=== PATIENT | female | born 1965 | race Caucasian/White ===

== ENCOUNTER → 2016-11-16 | Outpatient (CLI) | payer OTHER ==
--- NOTE | 2016-11-16 15:51 | DIAGNOSTIC IMAGING REPORT ---
LYMPH SENTINEL NODE ID CLINICAL HISTORY: 51 years-old Female presenting with RIGHT BREAST CANCER. COMPARISON: None. PROCEDURE: Using standard sterile technique, 4 intradermal and one deep injection of 0.515 mCi of Lymphoseek was placed in the right breast. The patient tolerated the procedure well. There were no immediate complications. The patient was subsequently transported to the surgical suite. No imaging was obtained at the referring physician's request. IMPRESSION: Injection of 0.515 mCi of Lymphoseek in the right breast. Electronically signed by: Contreras Che M.D. 11/16/2016 3:50 PM Dictated Date/Time: 11/16/2016 3:49 PM
== END | disposition home or self-care (01) ==
LOC: C.NUCL 14:16
PROVIDERS: ATTEND Surgery
DX: C50.911 Malignant neoplasm of unspecified site of right female breast (principal)